=== PATIENT | female | born 1945 | race Caucasian/White ===

== ENCOUNTER 2017-03-13 09:20 | Emergency (ER) | payer OTHER ==
[2017-03-13 09:36] VITALS: TEMP 97.9
[2017-03-13] MEDS ORDERED: Albuterol-Ipratrop 3 mg / 0.5 (3 ml) UD IH STA (09:56)
--- NOTE | 2017-03-13 09:57 | C.PDOC ---
History Of Present Illness 71-year-old female, PMHx includes Asthma, Bronchitis, presents to the emergency department with complaints of shortness of breath and wheezing, that is consistent with her asthma exacerbation symptoms. Patient reports using home nebulizer without relief, resulting in her coming to the ED for evaluation. Denies nausea/vomiting, numbness/weakness, or any other associated symptoms. No other complaints at this time. Time Seen by Provider: 03/13/17 09:26 History Per: Patient History/Exam Limitations: no limitations Onset/Duration Of Symptoms: Days Past Medical History Reviewed: Historical Data, Nursing Documentation, Vital Signs Vital Signs: Last Vital Signs Temp 97.9 F 03/13/17 09:25 Pulse 61 03/13/17 11:37 Resp 18 03/13/17 11:37 BP 140/94 H 03/13/17 11:37 Pulse Ox 100 03/13/17 11:38 - Medical History PMH: Asthma, Bronchitis, HTN - [facility] Procedures VACCINATION NEC (09/19/13) Family History: States: Unknown Family Hx - Social History Hx Tobacco Use: No Hx Alcohol Use: No Hx Substance Use: No - Immunization History Hx Tetanus Toxoid Vaccination: No Hx Influenza Vaccination: Yes Hx Pneumococcal Vaccination: Yes Review Of Systems Except As Marked, All Systems Reviewed And Found Negative. Constitutional: Negative for: Fever, Chills Cardiovascular: Negative for: Chest Pain Respiratory: Positive for: Shortness of Breath, Wheezing Gastrointestinal: Negative for: Nausea, Vomiting Musculoskeletal: Negative for: Neck Pain, Back Pain Skin: Negative for: Rash Physical Exam - Physical Exam Appears: Non-toxic, No Acute Distress Skin: Warm, Dry, No Rash Head: Atraumatic, Normacephalic Eye(s): bilateral: Normal Inspection, PERRL Nose: Normal Oral Mucosa: Moist Lips: Normal Appearing Neck: Normal ROM Chest: Symmetrical Cardiovascular: Rhythm Regular Respiratory: Normal Breath Sounds, No Accessory Muscle Use, Wheezing (B/L, EXPIRATORY.) Extremity: Normal ROM Neurological/Psych: Oriented x3, Normal Speech ED Course And Treatment O2 Sat by Pulse Oximetry: 100 - Radiology CXR: Viewed By Me, Read By Radiologist CXR Interpretation: Yes: No Acute Disease (unchanged from 03/07) Progress - Re-Evaluation Re-evaluation Note: 03/13/17 11:23 FEELS BETTER. PF 350. VSS. AMBUL WO DIFF NARD. - Data Reviewed Data Reviewed: Diagnostic imaging, Old records Disposition Counseled Patient/Family Regarding: Studies Performed, Diagnosis, Need For Followup, Rx Given - Disposition Referrals: YOUR,PMD [Other] Disposition: HOME/ ROUTINE Disposition Time: 11:23 Condition: IMPROVED Prescriptions: Albuterol HFA [Ventolin HFA 90 mcg/actuation (8 g)] 1 puff IH Q4 #1 inhaler predniSONE [Prednisone] 60 mg PO DAILY #12 tab Instructions: Asthma (ED) Print Language: BULGARIAN - Clinical Impression Clinical Impression: Asthma exacerbation - Scribe Statement The provider has reviewed the documentation as recorded by the Sabasibbreanna De Oliveira All medical record entries made by the Sabasibe were at my direction and personally dictated by me. I have reviewed the chart and agree that the record accurately reflects my personal performance of the history, physical exam, medical decision making, and the department course for this patient. I have also personally directed, reviewed, and agree with the discharge instructions and disposition.
[2017-03-13] MEDS ORDERED: Albuterol-Ipratrop 3 mg / 0.5 (3 ml) UD ONE (10:14)
--- NOTE | 2017-03-13 11:06 | RAD ---
HISTORY: ASTHMA COMPARISON: Comparison is made to the previous study dated 12/08/2016 TECHNIQUE: Chest PA and lateral FINDINGS: LUNGS: Small opacities at the lower portion of the lungs appears more conspicuous compared to the previous exam. Otherwise no change PLEURA: No significant pleural effusion identified. No pneumothorax apparent. CARDIOVASCULAR: Normal. OSSEOUS STRUCTURES: No significant abnormalities. VISUALIZED UPPER ABDOMEN: Normal. OTHER FINDINGS: None. IMPRESSION: Slightly more prominent small opacities at the lower lobes compared to the previous exam. Otherwise no interval change.
[2017-03-13 11:37] VITALS: BP 140/94; PULSE 61; RESP 18
[2017-03-13 11:38] VITALS: O2SAT 100
== END 2017-03-13 11:38 | disposition home or self-care (01) ==
LOC: C.ER 09:20
DX: J45.901 Unspecified asthma with (acute) exacerbation (principal)

== ENCOUNTER 2018-07-04 07:44 | Day surgery (SDC) | payer MEDICARE, OTHER ==
[2018-07-04 08:15] VITALS: TEMP 97
[2018-07-04 08:27] VITALS: BMI 39.0
[2018-07-04] MEDS ORDERED: Propofol 10 mg/ml Inj (20 ML) ONE (10:35)
--- NOTE | 2018-07-04 10:51 | CP.SDSHP ---
Same Day Surgery H & P - History Proposed Procedure: Colonoscopy Pre-Op Diagnosis: Rectal Bleeding - Allergies Allergies: Allergies No Known Allergies Allergy (Verified 12/10/16 09:11) - Physical Exam Vital Signs: Vital Signs 07/04/18 08:09 Temperature 97 F L Pulse Rate 68 Respiratory 19 Rate Blood Pressure 148/86 O2 Sat by Pulse 97 Oximetry Mental Status: Alert & Oriented x3 Neuro: WNL Heart: WNL Lungs: WNL GI: WNL - Impression Impression: Rectal Bleeding, plan for Colonoscopy Pt. Evaluated Today:Candidate for Anesthesia & Procedure: Yes - Date & Time Date: 07/04/18 Time: 10:00 Short Stay Discharge - Short Stay Discharge Admitting Diagnosis/Reason for Visit: RECTAL BLEEDING Disposition: HOME/ ROUTINE
[2018-07-04 11:43] VITALS: O2SAT 100
[2018-07-04 13:50] VITALS: BP 149/62; PULSE 62; RESP 14
== END 2018-07-04 12:23 | disposition home or self-care (01) ==
LOC: C.ENDO 07:44
PROVIDERS: ATTEND Internal Medicine Gastroenterology
DX: D12.3 Benign neoplasm of transverse colon (principal); K62.5 Hemorrhage of anus and rectum; K64.8 Other hemorrhoids
CPT/HCPCS: 45380; 88305; J2001; J2704; J7040

== ENCOUNTER 2018-10-26 09:09 | Emergency (ER) | payer OTHER ==
[2018-10-26 09:09] VITALS: BMI 39.0
[2018-10-26] MEDS ORDERED: Sodium Chloride 0.9% 1,000 ML IV ONE (09:32)
--- NOTE | 2018-10-26 09:34 | C.PDOC ---
History Of Present Illness 72 y/o female presents to ED complaining of vomiting and diarrhea that started yesterday. States she initially felt some cramping epigastric pain but was resolved. Vomiting and diarrhea is nonbloody. Otherwise she denies fever, chil ls, or other physical complaints. Time Seen by Provider: 10/26/18 09:22 Chief Complaint (Nursing): GI Problem History Per: Patient History/Exam Limitations: no limitations Onset/Duration Of Symptoms: Days Current Symptoms Are (Timing): Still Present Past Medical History Reviewed: Historical Data, Nursing Documentation, Vital Signs Vital Signs: Last Vital Signs Temp 98.7 F 10/26/18 09:16 Pulse 66 10/26/18 09:16 Resp 20 10/26/18 09:16 BP 114/75 10/26/18 09:16 Pulse Ox 98 10/26/18 09:16 - Medical History PMH: Asthma, Bronchitis, HTN, Hypercholesterolemia Denies: Chronic Kidney Disease Surgical History: No Surg Hx - [facility] Procedures VACCINATION NEC (09/19/13) Family History: States: No Known Family Hx - Social History Hx Tobacco Use: No Hx Alcohol Use: Yes Hx Substance Use: No - Immunization History Hx Tetanus Toxoid Vaccination: No Hx Influenza Vaccination: Yes Hx Pneumococcal Vaccination: Yes Review Of Systems Except As Marked, All Systems Reviewed And Found Negative. Constitutional: Negative for: Fever Gastrointestinal: Positive for: Vomiting, Diarrhea Physical Exam - Physical Exam Appears: Non-toxic, No Acute Distress Skin: Warm, Dry Head: Atraumatic, Normacephalic Eye(s): bilateral: Normal Inspection Oral Mucosa: Moist Neck: Normal ROM Chest: Symmetrical Cardiovascular: Rhythm Regular, No Murmur Respiratory: Normal Breath Sounds, No Rales, No Rhonchi, No Wheezing Gastrointestinal/Abdominal: Tenderness (mild epigastric tenderness), No Guarding, No Rebound Extremity: Bilateral: Atraumatic, Normal Color And Temperature, Normal ROM Neurological/Psych: Oriented x3, Normal Speech ED Course And Treatment - Laboratory Results Result Diagrams: 10/26/18 09:37 10/26/18 09:37 O2 Sat by Pulse Oximetry: 98 (RA) Pulse Ox Interpretation: Normal Medical Decision Making Medical Decision Making: Plan: --Bloodwork --Pepcid 20 mg IVP --IV fluids 1L --Toradol 30 mg IVP --Zofran 4 mg IVP On re-evaluation, patient is not vomiting and abdomen is nontender. Disposition Doctor Will See Patient In The: Office Counseled Patient/Family Regarding: Diagnosis, Need For Followup - Disposition Disposition: HOME/ ROUTINE Disposition Time: 11:00 Condition: STABLE Prescriptions: Dicyclomine [Bentyl] 10 mg PO QID #14 cap Ondansetron ODT [Zofran ODT] 4 mg PO TID #12 odt Instructions: Diarrhea in Adolescents and Adults Forms: [facility] (Indonesian), General Discharge Instructions, Gen Discharge Inst Chilean - POA Present On Arrival: None - Clinical Impression Clinical Impression: Gastroenteritis - Scribe Statement The provider has reviewed the documentation as recorded by the Tor Wise Provider Attestation: All medical record entries made by the Tor were at my direction and personally dictated by me. I have reviewed the chart and agree that the record accurately reflects my personal performance of the history, physical exam, medical decision making, and the department course for this patient. I have also personally directed, reviewed, and agree with the discharge instructions and disposition.
[2018-10-26 09:41] LABS: BASO % 0.5 % (0.0-2.0); EOS # 0.1 K/uL (0.0-0.7); EOS % 0.9 % (0.0-4.0); HEMOGLOBIN 13.6 g/dL (11.0-16.0); LYMPH # 0.7 K/uL (1.0-4.3); LYMPH % 9.7 % (20.0-40.0); MEAN CELL VOLUME 91.5 fL (81.0-99.0); MEAN CORPUSCULAR HGB CONC 33.8 g/dL (33.0-37.0); MEAN PLATELET VOLUME 9.1 fL (7.2-11.7); MONO # 0.4 K/uL (0.0-0.8); MONO % 5.4 % (0.0-10.0); NEUT # 5.6 K/uL (1.8-7.0); NEUT % 83.5 % (50.0-75.0); PLATELET COUNT 292 K/uL (130-400); RBC 4.39 Mil/uL (3.80-5.20); RED CELL DISTRIBUTION WIDTH 13.8 % (11.5-14.5); WHITE BLOOD COUNT 6.7 K/uL (4.8-10.8)
[2018-10-26 10:01] LABS: BLOOD UREA NITROGEN 22 mg/dL (7-17); CALCIUM 9.1 mg/dl (8.6-10.4); GFR NON-AFRICAN AMERICAN > 60; LIPASE 50 U/L (23-300)
[2018-10-26 10:11] LABS: BASOPHIL 1 % (0-2); LYMPHOCYTE 9 % (20-40); MONOCYTE 4 % (0-10); NEUTROPHIL 86 % (50-75); PLATELET ESTIMATE NORMAL (NORMAL); TOTAL CELLS COUNTED 100
[2018-10-26 10:21] LABS: ALB/GLOB RATIO 1.2 (1.0-2.1); ALBUMIN 4.4 g/dL (3.5-5.0); ALT/SGPT 29 U/L (9-52); AST/SGOT 56 U/L (14-36)
[2018-10-26 11:16] VITALS: BP 138/85; PULSE 77; RESP 18; TEMP 98.9
[2018-10-26 17:12] VITALS: O2SAT 98
== END 2018-10-26 11:15 | disposition home or self-care (01) ==
LOC: C.ER 09:09
DX: K52.9 Noninfective gastroenteritis and colitis, unspecified (principal)
CPT/HCPCS: 80053; 83690; 85025; 96361; 96374; 96375; 99284; J1885; J2405; J7030

== ENCOUNTER 2019-02-07 04:30 | Emergency (ER) | payer OTHER ==
[2019-02-07 04:35] VITALS: BMI 39.0
[2019-02-07] MEDS ORDERED: Sodium Chloride 0.9% 1,000 ML IV STA (05:05)
--- NOTE | 2019-02-07 05:08 | C.PDOC ---
History Of Present Illness 73 year old female presents to the ED c/o generalized weakness that started after waking up. Patient reports she was at a green party last night, feeling fine but today after waking up she woke up feeling weak. Patient denies fever, chills, headache, nausea, vomit, diarrhea, CP, SOB, palpitations, weakness, numbness. Time Seen by Provider: 02/07/19 04:55 Chief Complaint (Nursing): Weakness/Neurological Deficit History Per: Patient History/Exam Limitations: no limitations Onset/Duration Of Symptoms: Hrs Current Symptoms Are (Timing): Better Activity At Onset Of Symptoms: Lying Associated Symptoms Preceding Syncopal Episode: No Predromal Symptoms (Sudden Onset) Seizure Or Post-ictal Symptoms: None Possible Causative Factor(s): Recent Alcohol Fall Associated With With Symptoms: No Severity: None Recent travel outside of the [place]: No Additional History Per: Patient Past Medical History Reviewed: Historical Data, Nursing Documentation, Vital Signs Vital Signs: Last Vital Signs Temp 98.5 F 02/07/19 04:41 Pulse 72 02/07/19 04:41 Resp 20 02/07/19 04:41 BP 130/84 02/07/19 04:41 Pulse Ox 96 02/07/19 04:41 - Medical History PMH: Asthma, Bronchitis, HTN, Hypercholesterolemia Denies: Chronic Kidney Disease Surgical History: No Surg Hx - [facility] Procedures VACCINATION NEC (09/19/13) Family History: States: Unknown Family Hx - Social History Hx Tobacco Use: No Hx Alcohol Use: Yes Hx Substance Use: No - Immunization History Hx Tetanus Toxoid Vaccination: No Hx Influenza Vaccination: Yes Hx Pneumococcal Vaccination: Yes Review Of Systems Except As Marked, All Systems Reviewed And Found Negative. Constitutional: Positive for: Weakness Cardiovascular: Negative for: Chest Pain Respiratory: Negative for: Shortness of Breath Physical Exam - Physical Exam Additional Physical Exam Comments: Constitutional: No acute distress. Head: Normocephalic. Atraumatic. Eyes: PERRL. ENT: Moist mucous membranes. Neck: Supple. Cardiovascular: Regular rate. Radial pulse 2+ bilaterally. Chest: No tenderness. Respiratory: Clear to auscultation bilaterally. GI: Soft. Nontender. Nondistended. Back: No CVA tenderness. Musculoskeletal: No tenderness or swelling of extremities. Skin: No rash. Neurologic: Alert, no focal deficit. ED Course And Treatment - Laboratory Results Result Diagrams: 02/07/19 05:37 02/07/19 05:37 O2 Sat by Pulse Oximetry: 96 (On RA) Pulse Ox Interpretation: Normal Medical Decision Making Medical Decision Making: Plan: * EKG * CXR * Labs * IV fluids CXR * No change from previous EKG * NSR 60 BPM, no ST elevations Disposition - Disposition Referrals: [facility] [Outside] Disposition: HOME/ ROUTINE Disposition Time: 06:14 Condition: GOOD Instructions: Fatigue, Weakness (ED) Forms: [employer] (Serbian) - Clinical Impression Clinical Impression: General weakness - Scribe Statement The provider has reviewed the documentation as recorded by the Scribe Faraz Dykes All medical record entries made by the Scribe were at my direction and personally dictated by me. I have reviewed the chart and agree that the record accurately reflects my personal performance of the history, physical exam, medical decision making, and the department course for this patient. I have also personally directed, reviewed, and agree with the discharge instructions and disposition.
[2019-02-07 05:40] LABS: BASO # 0.1 K/uL (0.0-0.2); EOS # 0.2 K/uL (0.0-0.7); HEMOGLOBIN 13.3 g/dL (11.0-16.0); LYMPH # 1.5 K/uL (1.0-4.3); LYMPH % 21.7 % (20.0-40.0); MEAN CELL VOLUME 90.8 fL (81.0-99.0); MEAN CORPUSCULAR HEMOGLOBIN 30.5 pg (27.0-31.0); MEAN CORPUSCULAR HGB CONC 33.5 g/dL (33.0-37.0); MEAN PLATELET VOLUME 8.6 fL (7.2-11.7); MONO # 0.5 K/uL (0.0-0.8); MONO % 6.6 % (0.0-10.0); NEUT # 4.8 K/uL (1.8-7.0); NEUT % 67.7 % (50.0-75.0); NRBC % 0.1 % (0.0-2.0); RBC 4.35 Mil/uL (3.80-5.20); RED CELL DISTRIBUTION WIDTH 13.7 % (11.5-14.5); WHITE BLOOD COUNT 7.1 K/uL (4.8-10.8)
[2019-02-07 06:10] LABS: ALB/GLOB RATIO 1.4 (1.0-2.1); ALBUMIN 4.3 g/dL (3.5-5.0); ALT/SGPT 20 U/L (9-52); AST/SGOT 27 U/L (14-36); BLOOD UREA NITROGEN 17 mg/dL (7-17); CALCIUM 9.5 mg/dl (8.6-10.4); GFR NON-AFRICAN AMERICAN > 60
[2019-02-07 06:19] VITALS: BP 125/61; PULSE 62; RESP 98; TEMP 98.1; O2SAT 99
--- NOTE | 2019-02-07 13:34 | RAD ---
Date of service: 02/07/2019 HISTORY: transient gen weakness COMPARISON: Comparison is made with 03/13/2017 TECHNIQUE: Chest PA and lateral views FINDINGS: LUNGS: No evidence of new infiltrate or consolidation in the lungs. PLEURA: No significant pleural effusion identified. No pneumothorax apparent. CARDIOVASCULAR: No aortic atherosclerotic calcification present. Normal cardiac size. No pulmonary vascular congestion. OSSEOUS STRUCTURES: No significant abnormalities. VISUALIZED UPPER ABDOMEN: Normal. OTHER FINDINGS: None. IMPRESSION: No active disease.
== END 2019-02-07 06:26 | disposition home or self-care (01) ==
LOC: C.ER 04:30
DX: R53.1 Weakness (principal)
CPT/HCPCS: 71046; 80053; 82948; 85025; 96360; 99285; J7030

== ENCOUNTER 2019-03-04 09:18 | Emergency (ER) | payer OTHER ==
[2019-03-04 09:19] VITALS: BMI 39.0
[2019-03-04 09:23] VITALS: RESP 20
--- NOTE | 2019-03-04 10:09 | C.PDOC ---
History Of Present Illness 73 y/o female c/o cough with white phlegm 2 times overnight and mild sob. no fever or chills. no cp. pt also reports blood in stool on Saturday. nnone since. denies rectal pain, abdominal pain, constipation. 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 denies: Fever, Chills, Chest Pain, Bloody Cough, Leg/Calf Pain, Dizziness, Light-headedness Past Medical History Reviewed: Historical Data, Nursing Documentation, Vital Signs Vital Signs: Last Vital Signs Temp 98.3 F 03/04/19 09:20 Pulse 71 03/04/19 09:20 Resp 20 03/04/19 09:39 BP 141/86 03/04/19 09:20 Pulse Ox 98 03/04/19 09:20 Primary Care Provider: Justice Mullins - Medical History PMH: Asthma, Bronchitis, HTN, Hypercholesterolemia Denies: Chronic Kidney Disease - [facility] Procedures VACCINATION NEC (09/19/13) Family History: States: Unknown Family Hx - Social History Hx Tobacco Use: No Hx Alcohol Use: Yes Hx Substance Use: No - Immunization History Hx Tetanus Toxoid Vaccination: No Hx Influenza Vaccination: Yes Hx Pneumococcal Vaccination: Yes Review Of Systems Constitutional: Negative for: Fever, Chills Cardiovascular: Negative for: Chest Pain Respiratory: Positive for: Cough, Shortness of Breath Gastrointestinal: Positive for: Hematochezia. Negative for: Nausea, Vomiting, Abdominal Pain, Rectal Pain Skin: Negative for: Rash Neurological: Negative for: Weakness, Numbness Physical Exam - Physical Exam Appears: Non-toxic, No Acute Distress Skin: Warm, Dry Head: Atraumatic, Normacephalic Neck: Supple Cardiovascular: Rhythm Regular, No Murmur Respiratory: No Decreased Breath Sounds, No Accessory Muscle Use, No Rales, No Rhonchi, No Wheezing Gastrointestinal/Abdominal: Bowel Sounds, Soft, No Tenderness, No Guarding, No Rebound Rectal: Hemorrhoids (5 o'clock position), Other (light brown stool. chaperoned by RN Calin Ellison) ED Course And Treatment O2 Sat by Pulse Oximetry: 98 - Other Rad CXR X-Ray: Viewed By Me, Read By Radiologist Interpretation: IMPRESSION: No focal consolidation. Borderline cardiomegaly. Ectatic aorta. Medical Decision Making Medical Decision Making: pot with cough with white sputum x 1 day, lungs cta; will get cxr and give one neb. tobias instool- pt has external hemorrhoid, light brown stool. guaiaic sent to lab. 1206 pt feeling better, will be referred to Dr Fuchs and gi. Disposition Counseled Patient/Family Regarding: Studies Performed, Diagnosis, Need For Followup, Rx Given - Disposition Referrals: Brenda Fuchs MD [Staff Provider] - [facility] [Outside] [facility] [Outside] Disposition: HOME/ ROUTINE Disposition Time: 12:08 Condition: IMPROVED Additional Instructions: Cherry un seguimiento con el Dr. Fuchs y con el Dr. Case (gastroenterologa). Regrese a la edmond de emergencias para anahy cualquier sntoma peor. Follow up with Dr Fuchs and with Dr Case (gastroenterology). Return to ER for any worse symptoms. Instructions: Cough, Adult (DC) Forms: Gen Discharge Inst Estonian, [facility] (Estonian) Print Language: MAORI - Clinical Impression Clinical Impression: Cough
[2019-03-04] MEDS ORDERED: Albuterol-Ipratrop 3 mg / 0.5 (3 ml) UD INH STA (10:13)
[2019-03-04] MEDS ORDERED: Albuterol-Ipratrop 3 mg / 0.5 (3 ml) UD ONE (10:29)
[2019-03-04 12:01] VITALS: BP 145/84; PULSE 75; TEMP 98.6
--- NOTE | 2019-03-04 12:04 | RAD ---
HISTORY: cough COMPARISON: Chest x-ray performed 02/07/19 TECHNIQUE: Chest PA and lateral, 2 views FINDINGS: Examination limited by habitus. LUNGS: No focal consolidation. Please note that chest x-ray has limited sensitivity for the detection of pulmonary masses. PLEURA: No significant pleural effusion identified. No definite pneumothorax . CARDIOVASCULAR: Borderline cardiomegaly. Ectatic aorta. Atherosclerotic calcifications present. OSSEOUS STRUCTURES: Degenerative changes. Osseous demineralization. VISUALIZED UPPER ABDOMEN: Unremarkable. OTHER FINDINGS: None. IMPRESSION: No focal consolidation. Borderline cardiomegaly. Ectatic aorta.
[2019-03-04 12:09] VITALS: O2SAT 98
== END 2019-03-04 12:31 | disposition home or self-care (01) ==
LOC: C.ER 09:18
DX: R05 Cough (principal)
CPT/HCPCS: 71046; 94150; 94640; 99284; G0328